=== PATIENT | male | born 1975 | race African-American/Black ===

== ENCOUNTER 2016-08-23 16:38 | Emergency (ER) | payer SELFPAY ==
[~2016-08-23] VITALS: Ht 170.2 cm; Wt 93.3 kg
[~2016-08-23 16:38] MED LIST: CIPRO500 MG PO; DEPAKOTE500 MG PO; EXCEDRIN EXTRA1 EACH PO; KEFLEX500 MG PO; MICROZIDE12.5 M1 PO; MOTRIN600 MG PO; NORCO 5/3251 TABLET PO; RISPERDAL4 MG PO
[2016-08-23] MEDS ORDERED: PERCOCET 5/31 TABLET PO (17:17)
[2016-08-23] MEDS ORDERED: INDOCIN50 MG PO (17:17)
[2016-08-23 18:44] VITALS: BP 142/92
== END 2016-08-23 18:46 | disposition home or self-care (01) ==
LOC: EME 16:38
DX: K40.90 Unilateral inguinal hernia, without obstruction or gangrene, not specified as recurrent (principal); I10 Essential (primary) hypertension; F31.9 Bipolar disorder, unspecified; F17.200 Nicotine dependence, unspecified, uncomplicated
CPT/HCPCS: 99281; 99284

== ENCOUNTER 2016-09-02 07:45 | Day surgery (SDC) | payer SELFPAY ==
[~2016-09-02] VITALS: Ht 170.2 cm; Wt 93.0 kg
[~2016-09-02 07:45] MED LIST changes: +INDOCIN50 MG PO; +PERCOCET 5/31 TABLET PO
[2016-09-02] MEDS ORDERED: DOCUSATE SODIU100 MG PO (08:23)
[2016-09-02] MEDS ORDERED: MULTIPLE VITAM1 EACH PO (08:24)
[2016-09-02] MEDS ORDERED: OXYCODONE-ACET1 EACH PO (08:25)
[2016-09-02 08:31] VITALS: BP 154/93
[2016-09-02 12:55] VITALS: BP 183/102
[2016-09-02 13:55] VITALS: BP 163/104
== END 2016-09-02 14:05 | disposition home or self-care (01) ==
LOC: SDC 07:45
DX: K40.90 Unilateral inguinal hernia, without obstruction or gangrene, not specified as recurrent (principal); D17.6 Benign lipomatous neoplasm of spermatic cord; I10 Essential (primary) hypertension; Z82.49 Family history of ischemic heart disease and other diseases of the circulatory system; F17.200 Nicotine dependence, unspecified, uncomplicated
CPT/HCPCS: 93005; C1781; J0690; J1100; J1170; J1885; J2250; J2405; J3010